=== PATIENT | female | born 1995 | race Caucasian/White ===

== ENCOUNTER 2020-10-31 20:07 | Observation (INO) | payer OTHER ==
[~2020-10-31] VITALS: Ht 170.2 cm; Wt 61.4 kg
[2020-10-31 20:46] LABS: BASOPHILS 0.5 % (0-2); HEMOGLOBIN 11.4 g/dL (12-16); LYMPHOCYTES 19.4 % (15-50); MCH 30.5 pg (26.0-34.0); MCHC 33.6 g/dL (31.0-37.0); MCV 90.8 fL (80.0-100.0); MEAN PLATELET VOLUME 7.8 fL (7.4-10.4); MONOCYTES 7.5 % (2-11); NEUTROPHILS 66.6 % (40-80); PLATELET COUNT 242 10x3/uL (130-400); RBC 3.74 10x6/uL (4.00-5.40); RDW 15.1 % (11.5-14.5); WBC 5.4 10x3/uL (4.8-10.8)
[2020-10-31 20:48] LABS: CALC OSMOLALITY 278 mosm/kg (275-300); CALCIUM 8.1 mg/dL (8.5-10.1); CARBON DIOXIDE 29.7 mmol/L (21.0-32.0); CHLORIDE - SERUM 105 mmol/L (98-107); CREATININE - SERUM 0.9 mg/dL (0.6-1.3); GLUCOSE 78 mg/dL (74-106); POTASSIUM - SERUM 3.5 mmol/L (3.5-5.1); SODIUM 141 mmol/L (136-145); UREA NITROGEN 11 mg/dL (7-18); eGFR NON AFRICAN AMERICAN 80 mL/min (90-120)
[2020-10-31 20:54] LABS: ALBUMIN 3.6 g/dL (3.4-5.0); ALKALINE PHOSPHATASE 59 U/L (30-120); ALT (SGPT) 22 U/L (10-68); AMYLASE - SERUM 31 U/L (25-115); BILIRUBIN - TOTAL 0.28 mg/dL (0.2-1.3); LIPASE 75 U/L (73-393)
[2020-10-31 20:58] LABS: KETONE NEGATIVE (NEGATIVE); NITRITE NEGATIVE (NEGATIVE); UROBILINOGEN NORMAL mg/dL (< 2)
[2020-10-31 20:59] LABS: BILIRUBIN NEGATIVE (NEGATIVE)
[2020-10-31 21:06] LABS: BACTERIA FEW HPF (NONE SEEN); WHITE CELLS - URINE 0-5 HPF (0-4)
[2020-10-31 21:39] VITALS: BP 96/55
[2020-10-31 22:39] VITALS: BP 107/64
[2020-10-31 22:42] LABS: HCG SERUM NEGATIVE (NEGATIVE)
[2020-10-31 23:39] VITALS: BP 99/44
[2020-11-01] VITALS (12 sets, daily range): BP systolic 100–131; BP diastolic 48–86; Ht 170.2 cm; Wt 61.4 kg
--- NOTE | 2020-11-01 01:50 | NUR ---
DR TIM PERFORMED PELVIC EXAM, PT TOLERATED WELL
--- NOTE | 2020-11-01 02:05 | NUR ---
PT GOING TO US AT THIS TIME
--- NOTE | 2020-11-01 09:39 | NUR ---
pt sleeping, no distress noted. reports lop 10/10. 4mg morphine and zofran admin per eMAR. cont to monitor.
--- NOTE | 2020-11-01 11:59 | NUR ---
pt agitated that she has been here since 1999 and still in the ER after she was told she was being admitted. Reports pain 03/14 and states that morphine 4mg is not "touching it" and that fentanyl was the only thing that helped. Let Zhanna Rasmussen charge nurse know. House sup. called, still waiting on room. Paged Dr. Meneses to request med change. waiting aviation technical systems specialist back.
--- NOTE | 2020-11-01 12:10 | NUR ---
per Dr. Meneses, 1mg dilaudid IV one time dose ordered. cont to monitor pain
--- NOTE | 2020-11-01 13:25 | NUR ---
PT REPORTS PAIN RELIEF WITH DILAUDID 1MG IV PER eMAR.
--- NOTE | 2020-11-01 13:25 | NUR ---
pt reports pain relief with dilaudid 1mg IV per eMAR. cont to monitor
--- NOTE | 2020-11-01 16:20 | NUR ---
Dr. Frank NOTIFIED THAT DR. DARDEN ORDERED FOR CLERICAL MANAGER CONSULT FOR POSSIBLE OVARIAN CYST TO [facility]. DR. AG WILL COME UP TO SEE PATIENT.
--- NOTE | 2020-11-01 16:33 | NUR ---
CALLED MED II TO GIVE REPORT. WAS INSTRUCTED TO CALL BACK IN 10-15 MIN TO SEE WHAT NURSE WAS TAKING PATIENT GOING TO ROOM 2126. NURSE WHO HAS ROOM 2126 REFUSED TO TAKE THIS ASSIGNED PATIENT. AGUSTO SULLIVAN CHARGE HAS BEEN NOTIFIED.
--- NOTE | 2020-11-01 16:55 | NUR ---
REPORT GIVEN TO AGUSTO VAZQUEZ. WAITING FOR ROOM TO BE CLEANED. WILL CALL ONCE ROOM IS READY.
[2020-11-01] MEDS ORDERED: EFFEXOR50 MG PO (20:22)
[2020-11-01] MEDS ORDERED: XANAX0.5 MG PO (20:23)
[2020-11-02 00:33] VITALS: BP 114/55
[2020-11-02] MEDS ORDERED: TRAZODONE HCL50 MG PO (01:19)
[2020-11-02] MEDS ORDERED: ATIVAN0.5 MG PO (01:20)
[2020-11-02] MEDS ORDERED: MEDICAL MARIJUANA (01:21)
[2020-11-02 05:26] VITALS: BP 112/54
[2020-11-02 09:00] VITALS: BP 126/68
[2020-11-02] MEDS ORDERED: BACLOFEN10 MG PO (14:46)
[2020-11-02] MEDS ORDERED: HYDROCODON-ACE1 EA10 PO (14:48)
[2020-11-02] MEDS ORDERED: OMNICEF300 MG PO (14:49)
--- NOTE | 2020-11-02 15:53 | NUR ---
DISCHARGE INSTRUCTIONS REV'D AND PT STATES UNDERSTANDING. PT GIVEN HARD SCRIPT FOR PAIN MEDICATION. PT DISCHARGING HOME WITH FAMILY. PT ESCORTED OUT VIA WHEELCHAIR BY HOSPITAL STAFF.
--- NOTE | 2020-11-03 21:09 | HP ---
PATIENT: DIAN CANAS MEDICAL RECORD: [id number] ACCOUNT: [id number] LOCATION:[address] : 93 ADMISSION DATE: 11/01/20 PCP: ELROY OLIVER HISTORY AND PHYSICAL EXAMINATION CHIEF COMPLAINT: Abdominal pain. HISTORY OF PRESENT ILLNESS: This is a 25-year-old female from the main area visiting [place] with friends and she had acute abdominal pain that started yesterday. When asked, she states she has had pain off and on for the last couple of months in the lower abdomen and she went to her fabric and accessories estimator a month or two ago and had a Pap smear and was found to have an abnormality, possibly MARCELL. She is scheduled for another procedure, but it has not happened yet. The patient was standing in a line yesterday here in [place]. She was complaining to her friend that she has this abdominal pain and she almost passed out. She was caught by her friends. She was brought to the ER with this "severe" abdominal pain. She denies nausea, vomiting, diarrhea. No dysuria. No fever or chills. She states she took an unknown antibiotic for a few days and finished it a few days ago. In the ER, CBC was normal. Basic metabolic panel was normal. Liver functions were normal. Pancreatic enzymes were normal. Beta hCG was negative. Urinalysis shows 1+ blood, 1+ leukocyte esterase, but few bacteria. She had a CT of the abdomen and pelvis with contrast did not show anything acute. There was marked distention of her stomach with heterogenous ingested material there. There was mild distention of her bladder. An ultrasound of the pelvis was then done showing a 1.4 cm fibroid. Ovaries were unremarkable. She has been admitted into the hospital for a surgical consultation. PAST MEDICAL HISTORY: Again the abnormal Pap smear noted recently. She also has a history of posttraumatic stress disorder. PAST SURGICAL HISTORY: She has had 2 C-sections. She has had a bilateral tubal ligation. DRUG ALLERGIES: None. HOME MEDICATIONS: Include medical marijuana. HABITS: No tobacco, no alcohol, but she does use medical marijuana. FAMILY HISTORY: Unremarkable. SOCIAL HISTORY: She lives with her 3 children. 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 REVIEW OF SYSTEMS: GENERAL: No major weight changes. HEENT: No particular sinus or allergy problems. RESPIRATORY: No history of asthma, emphysema. CARDIAC: No history of heart trouble. GASTROINTESTINAL: No diarrhea, constipation, or heartburn. : No significant problems there. NEUROLOGIC: No migraines or seizures. PSYCHIATRIC: She has posttraumatic stress disorder. PHYSICAL EXAMINATION: HISTORY AND PHYSICAL [id number] MISSAELDIAN VITAL SIGNS: All stable. Heart rate is 58. GENERAL: She is sitting in the middle of the bed in the Emergency Department talking on the phone when I initially saw her. HEENT: Unremarkable. NECK: Supple. HEART: Regular rate and rhythm. LUNGS: Clear. ABDOMEN: Soft, but there is tenderness in the left lower quadrant. No guarding or rigidity. No rebound. No mass. EXTREMITIES: No edema. LABORATORY DATA: CBC with a white count of 5400, hemoglobin 11.4, hematocrit 34. Basic metabolic panel: Sodium 141, potassium 3.5, chloride 105, CO2 29.7, BUN 11, creatinine 0.9, glucose 78, calcium 8.1. Liver functions are all normal. Amylase 31 and lipase 75. Beta hCG is negative. Urinalysis: 1+ blood, 1+ leukocyte esterase, few bacteria. CT abdomen and pelvis shows no acute process seen. There is marked distention of the stomach with heterogenous ingested material. There is mild distention of the bladder. Ultrasound of the pelvis 1.4 cm fibroid, unremarkable ovaries. ASSESSMENT: 1. Lower abdominal pain of uncertain etiology. 2. Recent abnormal Pap smear. PLAN: Consult to Dr. Mendoza. Dr. Mendoza and has seen the patient. I spoke with him. He would like a COMPUTED TOMOGRAPHY SCANNER OPERATOR to get involved as well. Other tests or procedures as warranted. TRANSINT:[id number] Voice Confirmation ID: [id number] DOCUMENT ID: [id number] MIHIR RUCKER MD at 2109 CC: [id number] DICTATION DATE: 11/01/20 1605 PROVISIONING SPECIALIST: 11/01/202034 DIS IN 11/02/20 [place] [id number] [place] [id number]
== END 2020-11-02 15:54 | disposition home or self-care (01) ==
LOC: D.ER 20:07 → D.EDHOLD 11-01 04:39 → OBSVTIME 11-01 04:39 → D.EDHOLD 11-01 04:39 → D.M2 11-01 16:21
PROVIDERS: Family Medicine; ADMIT Family Medicine; ATTEND Family Medicine
DX: N39.0 Urinary tract infection, site not specified (principal); R10.32 Left lower quadrant pain; R55 Syncope and collapse; N20.1 Calculus of ureter; D25.9 Leiomyoma of uterus, unspecified